=== PATIENT | female | born 1965 | race Caucasian/White ===

== ENCOUNTER 2016-03-08 11:04 | Emergency (ER) | payer BC, MEDICAID ==
[2016-03-08] MEDS ORDERED: DEXAMETHASONE 10 MG/ML VIAL PO STA (12:24)
[2016-03-08] MEDS ORDERED: DEXAMETHASONE 10 MG/ML VIAL ONE (12:33)
== END 2016-03-08 12:36 | disposition home or self-care (01) ==
DX: M16.12 Unilateral primary osteoarthritis, left hip (principal); M17.12 Unilateral primary osteoarthritis, left knee

== ENCOUNTER 2016-03-20 14:52 | Emergency (ER) | payer BC, MEDICAID | END 2016-03-20 17:06 | disposition home or self-care (01) | DX: M25.571 Pain in right ankle and joints of right foot (principal); Z87.81 Personal history of (healed) traumatic fracture; E66.01 Morbid (severe) obesity due to excess calories; Z68.43 Body mass index [BMI] 50.0-59.9, adult ==

== ENCOUNTER 2016-04-24 07:41 | Outpatient (CLI) | payer BC, MEDICAID | END 2016-04-24 07:42 | disposition home or self-care (01) | DX: M25.562 Pain in left knee (principal); I83.92 Asymptomatic varicose veins of left lower extremity ==